=== PATIENT | female | born 1995 | race Caucasian/White ===

== ENCOUNTER 2017-11-26 23:02 | Emergency (ER) | payer SELFPAY ==
[~2017-11-26] VITALS: Ht 160 cm; Wt 79.4 kg
[~2017-11-26 23:02] MED LIST: INSULIN REGULAR; LEVOX; NOVOLIN 70100 UNITS/ SQ
[2017-11-26 23:54] LABS: CLARITY,URINE CLOUDY (CLEAR); COLOR,URINE STRAW (YELLOW); PREGNANCY TEST, URINE NEGATIVE (NEGATIVE)
[2017-11-26 23:58] LABS: BILIRUBIN,URINE NEGATIVE (NEGATIVE); KETONES,URINE NEGATIVE (NEGATIVE); NITRITE,URINE POSITIVE (NEGATIVE); PROTEIN,URINE DIPSTICK 2+ (NEGATIVE); URINE UROBILINOGEN 0.2 mg/dL (0.2 - 1)
[2017-11-27 00:01] LABS: LEUKOCYTE ESTERASE ,URINE 2+ (NEGATIVE)
[2017-11-27 00:02] LABS: BACTERIA,URINE MANY /HPF; EPITHELIAL CELLS,URINE FEW /LPF; WBC,URINE (MAN) >50 /HPF (0-5)
[2017-11-27] MEDS ORDERED: LIDOCAINE HCL 1% 2 ML AMP ONE (00:38)
[2017-11-27] MEDS ORDERED: CEFTRIAXONE SOD 1 GM VIAL IM ONE (00:45)
[2017-11-27 00:50] VITALS: BP 134/81
== END 2017-11-27 01:01 | disposition home or self-care (01) ==
LOC: ER 23:02
DX: R10.31 Right lower quadrant pain (principal); R10.32 Left lower quadrant pain; N30.90 Cystitis, unspecified without hematuria; E11.9 Type 2 diabetes mellitus without complications; Z85.43 Personal history of malignant neoplasm of ovary
CPT/HCPCS: 81001; 81025; 99282; J0696; J2001